=== PATIENT | female | born 1980 | race Two or more races ===

== ENCOUNTER 2018-06-14 06:52 | Inpatient (IN) | payer OTHER ==
--- NOTE | 2018-06-11 17:47 | PREOPHP ---
DATE OF ADMISSION: 06/14/2018 The patient is coming on 06/14/2018, for a surgical procedure. HISTORY OF PRESENT ILLNESS: This is a 38-year-old female, 0, para 0. This patient with a hi story of intractable pelvic pain, intractable multiple fibroid uterus and a history of heavy periods with anemia because she is changing pads every 1 to 2 hours with severe pelvic pain every cycle up to the last 3 to 4 days of her period. The patient has been treated with no alleviation of her symptom s either from her anemia bleeding or pelvic pain. The patient had been referred to me also because o f painful intercourse. She had been diagnosed with multiple fibroid uterus and she would like fibroi ds to be removed. The fibroids were up to 4 cm in diameter and they were multiple and she would be i nterested in having children and these fibroids she was told would interfere with her anitha nuation to full term . REVIEW OF SYSTEMS: Negative for heart disease. Negative for lung disease. Negative for GI, endocri ne disease, neurological or orthopedic disease. SOCIAL HISTORY: She does not drink or smoke. She has no history of drugs or alcohol. ALLERGIES: SHE IS NOT ALLERGIC TO ANY MEDICATION. FAMILY HISTORY: Hypertension, breast cancer, heart attacks and diabetes. PHYSICAL EXAMINATION: VITAL SIGNS: Stable. The patient is 5 feet, 2 inches. She is 119 pounds. HEAD AND NECK: Normal. CHEST: Clear. HEART: Normal sinus rhythm. LUNGS: Clear. BREASTS: Soft, nontender, no masses. ABDOMEN: Soft and uterus above the symphysis pubic. PELVIC: With normal external genitalia: Cervix is nulliparous. Uterus retroverted, flexed with mul tiple fibroids. The adnexa are nonpalpable. There is pain in both sides. RECTAL: Normal. EXTREMITIES: Normal. DIAGNOSES: The patient has diagnosis by ultrasound as well of: 1. Multiple uterine fibroids, submucosal fibroids. 2. Intractable pelvic pain, bleeding, anemia. 3. Previous spontaneous . The patient has been advised of the possible risks and possible complications of the procedure with h er alternatives and options. Written information was provided. She had no more questions and agreed to go ahead with the procedure that would be multiple myomectomy, possible NOY. She has been advise d that in case of an emergency situation during the surgery many times will be made to do a hysterect gaston instead of a myomectomy. She understands the possible risks and possible complications of the chowdhury rgery and she agreed to go ahead with the procedure with full understanding and no more questions. Dictated By: JAZMIN MORILLO/GILBERTO Conf#: [id number] DID#: [id number]
[~2018-06-14] VITALS: Ht 157.5 cm; Wt 52.6 kg
[2018-06-14] VITALS (26 sets, daily range): BP systolic 98–133; BP diastolic 47–78; PULSE 89–126; RESP 8–28; Ht 157.5 cm; Wt 52.6 kg
[~2018-06-14 06:52] MED LIST: CEFAZOLIN 2 GM/50 ML (PMX) 50 ML IVPB ONE; DEXTROSE 5%-LR 1,000 ML IV SCH
[2018-06-14] MEDS ORDERED: FER325 PO (07:35)
--- NOTE | 2018-06-14 08:45 | PREAC ---
Date/Time of Note Date/Time of Note DATE: 06/14/18 TIME: 08:44 Anesthesia Eval and Record Evaluation Time Pre-Procedure Interview DATE: 06/14/18 TIME: 08:44 Age 38 Sex female NPO: 8 hrs Preoperative diagnosis fibroids, anemia Planned procedure myomectomy Past Medical History Past Medical History: Includes Heme: Anemia Surgery & Anesthesia Issues No known issue Meds Anticoagulation: No Beta Verona within 24 hr: No Reason Beta Verona not given: Pt. not on B-Verona Reported Medications Ferrous Sulfate* (Ferrous Sulfate*) 325 Mg Tabec, 325 MG PO BID, TAB 06/14/18 Current Medications Dextrose/Lactated Ringer's 1,000 ml @ 125 mls/hr Q8H IV ; Start 06/14/18 at 06:00; Stop 06/14/18 at 23:00 Meds reviewed: Yes Allergies Coded Allergies: No Known Allergy (Unverified , 06/14/18) Allergies Reviewed: Yes Labs/Studies Labs Reviewed: Reviewed by anesthesiologist test: Negative Pre-procedure Exam Last vitals Vital Signs Date Temp Pulse Resp B/P (MAP) Pulse Ox O2 O2 Flow FiO2 Time Delivery Rate 06/14/18 98.9 89 18 118/78 98 Room Air 07:43 (91) Airway: Adequate mouth opening, Adequate thyromental dist Mallampati: Mallampati II Teeth: Normal Lung: Normal Heart: Normal ASA Physical Status ASA physical status: 1 Emergency: None Planned Anesthetic General/MAC: ETT Planned Pain Management Parenteral pain med, Local by surgeon Pre-operative Attestations Prior to commencing anesthesia and surgery, the patient was re-evaluated, there was verification of: *The patient's identity *The results of appropriate recent lab work and preoperative vital signs *The above evaluation not changing prior to induction *Anesthetic plan, risk benefits, alternative and complications discussed with patient/family; questions answered; patient/family understands, accepts and wishes to proceed. ENRRIQUE DA SILVA Jun 14, 2018 08:45
[2018-06-14] MEDS ORDERED: LIDOCAINE 2% (SDV) 5 ML INJ ONE (08:54)
[2018-06-14] MEDS ORDERED: ROCURONIUM 50 MG INJ ONE (08:54)
[2018-06-14] MEDS ORDERED: PROPOFOL 20 ML ONE (08:54)
[2018-06-14] MEDS ORDERED: MIDAZOLAM 1 MG/ML 2 ML INJ ONE (08:55)
[2018-06-14] MEDS ORDERED: FENTAnyl 50 MCG/ML VIAL ONE ×2 (08:55→11:08)
[2018-06-14] MEDS ORDERED: CEFAZOLIN 1 GM INJ ONE (08:55)
[2018-06-14] MEDS ORDERED: ALBUTEROL 0.083% (NEB) 2.5 MG/3 ML AMP HHN PRN (09:30)
[2018-06-14] MEDS ORDERED: HYDROmorphONE 1 MG/5 ML IV SYRINGE IV PRN ×3 (09:30)
[2018-06-14] MEDS ORDERED: OXYCODONE/ACETAMINOPHEN (5/325) TAB PO PRN ×2 (09:30)
[2018-06-14] MEDS ORDERED: ONDANSETRON 4 MG INJ IV PRN (09:30)
[2018-06-14] MEDS ORDERED: MEPERIDINE 25 MG INJ IV PRN (09:30)
[2018-06-14] MEDS ORDERED: morphine SULFATE/PF (10 MG/10 ML) INJ ONE (09:44)
[2018-06-14] MEDS ORDERED: ONDANSETRON 4 MG INJ ONE (10:01)
[2018-06-14] MEDS ORDERED: METOCLOPRAMIDE 10 MG INJ ONE (10:01)
[2018-06-14] MEDS ORDERED: KETOROLAC 30 MG INJ ONE (10:01)
--- NOTE | 2018-06-14 10:10 | HPN ---
Date/Time of Note Date/Time of Note DATE: 06/14/18 TIME: 10:10 Interval H&P Admission Note Pt. seen H&P reviewed: No system changes JAZMIN PHOENIX MD Jun 14, 2018 10:10
[2018-06-14] MEDS ORDERED: VASOPRESSIN 20 UNITS INJ ONE ×2 (10:22→10:34)
[2018-06-14] MEDS ORDERED: EPHEDrine 25 MG/5 ML SYG ONE (11:32)
[2018-06-14] MEDS ORDERED: ONDANSETRON INJ 6 MG in DEXTROSE 5% 50 ML IVPB PRN (12:00)
[2018-06-14] MEDS ORDERED: HYDROCODONE/APAP (5/325) TAB PO PRN ×2 (12:00)
[2018-06-14] MEDS ORDERED: DIPHENHYDRAMINE 50 MG CAP PO PRN (12:00)
--- NOTE | 2018-06-14 12:09 | SIPON ---
Date/Time of Note Date/Time of Note DATE: 06/14/18 TIME: 12:07 Operative Report Preoperative Diagnosis Multiple fibroid uterus intractable pelvic pain and bleeding Anemia Postoperative Diagnosis Same Operation/Procedure Performed Multiple myomectomy Surgeon see signature line virtual assistant for advertisers Rachel DREW Anesthesia: general Estimated blood loss: 0 - 10 ml's Transfusion Required none Specimen Fibroids Grafts/Implants none Complications none JAZMIN PHOENIX MD Jun 14, 2018 12:09
[2018-06-14] MEDS ORDERED: HYDROmorphONE 1 MG/5 ML IV SYRINGE IV ONE (12:13)
[2018-06-14] MEDS: LACTATED RINGER'S 1,000 ML IV SCH ×3 (14:09→22:46)
[2018-06-14] MEDS: KETOROLAC 30 MG INJ IV SCH ×3 (15:07→23:29)
[2018-06-14] MEDS: METOCLOPRAMIDE 10 MG TAB PO SCH ×3 (15:08→23:27)
[2018-06-14] MEDS: CEFAZOLIN 1 GM/50 ML (PMX) 50 ML IVPB SCH ×2 (15:32→22:46)
--- NOTE | 2018-06-14 16:49 | OPR ---
DATE OF OPERATION: 06/14/2018 PROCEDURE: Multiple myomectomy. PREOPERATIVE DIAGNOSES: 1. Multiple fibroid uterus. 2. Intractable pelvic pain and bleeding. 3. Anemia. POSTOPERATIVE DIAGNOSES: 1. Multiple fibroid uterus. 2. Intractable pelvic pain and bleeding. 3. Anemia. SURGEON: Jazmin Ortiz MD NEW [employer] MAKE READY WORKER: Rachel Renner PA-C ANESTHESIA: General and epidural. ANESTHESIOLOGIST: Nicole Petit MD DESCRIPTION OF PROCEDURE: The patient was given epidural and general anesthesia, placed in the supin e position. A Frey catheter was placed in the bladder. The abdomen was prepped and draped. A becker sverse incision was made suprapubically over the midline of about 10 cm in length. The abdominal cav ity was reached and the uterus was brought out through the incision. There were many fibroids and on e was in the anterior surface fundus which was mostly pedunculated and large of about 5 cm. There wa s an intramural fibroid. There was left-sided posterior wall of the uterus lateral to the left side that was maybe 7 cm. Another posterior fibroid that was in the lower part on the right side was abou t 4 cm. There was one anteriorly to the uterus near the cervix that was also about 1 cm and there we re 2 posterior subserosal fibroids that were about 1 cm each in the back of the uterus. The Pitressi n diluted with normal saline was injected around the old fibroids at the level of the subserosal area . An incision was made and the fibroids were grabbed with towel clips and brought out one by one. W e found 8 fibroids of different sizes that were removed from the uterus. All incisions were closed w ith 2-0 chromic interrupted sutures and this was done in 2 layers, first with the myometrium, second to the serosa of the uterus. The ovaries had small cysts that were fulgurated. Both tubes had an un derlining of possible embryonic cyst channels that were under the mesosalpinx and both tubes. Both t ubes and ovaries were normal otherwise. The areas of surgery were covered with Interceed and also braxton th ovaries were covered with Interceed. The abdominal cavity was cleaned out and closed after sponge counts and instrument counts were correct. A 2-0 Vicryl suture was used to the peritoneum. A 0 PDS looped suture was used for the fascia, 2-0 Vicryl for the subcutaneous tissue, 3-0 Monocryl subcutic ular to the skin. The patient tolerated the procedure well and left the OR awake and stable. Sponge counts and instruments counts were correct. Intravenous antibiotics were given for prophylaxis. Bl ood loss was minimal and the urine was clear at the end of the procedure. Dictated By: JAZMIN MORILLO/GILBERTO Conf#: [id number] DID#: [id number]
[2018-06-15 01:38] VITALS: BP 93/56; PULSE 77; RESP 16
[2018-06-15] MEDS: METOCLOPRAMIDE 10 MG TAB PO SCH ×4 (06:00→22:19)
[2018-06-15] MEDS: CEFAZOLIN 1 GM/50 ML (PMX) 50 ML IVPB SCH ×3 (06:01→21:09)
[2018-06-15] MEDS: KETOROLAC 30 MG INJ IV SCH ×3 (06:03→17:34)
[2018-06-15 07:49] VITALS: BP 105/58; PULSE 88; RESP 16
--- NOTE | 2018-06-15 12:08 | PN ---
Date/Time of Note Date/Time of Note DATE: 06/15/18 TIME: 12:07 Assessment/Plan Lines/Catheters IV Catheter Type (from Nrsg): Saline Lock Frey in Place (from Nrsg): Yes Subjective 24 Hr Interval Summary Day 1 post myomectomy Patient very gassy afebrile not in pain Encouraged ambulation Frey to be removed Patient has been explained about the findings and surgery and they were very grateful Anemic We will give her IV iron Constitutional: no complaints Feeding: advancing diet Pain Control: mild Detailed Summary Eyes: no complaints ENT: no complaints Respiratory: no complaints Cardiovascular: no complaints Gastrointestinal: no complaints Genitourinary: no complaints Musculoskeletal: no complaints Skin: no complaints Neurologic: no complaints Endocrine: no complaints Lymphatic: no complaints Psychological: no complaints, nl mood/affect Immunologic: no complaints Exam/Review of Systems Vital Signs Vitals Vital Signs Date Temp Pulse Resp B/P (MAP) Pulse Ox O2 O2 Flow FiO2 Time Delivery Rate 06/15/18 98.5 88 16 105/58 99 07:49 (74) 06/14/18 Nasal 2.0 15:16 Cannula Intake and Output 06/14/18 06/14/18 06/15/18 1515:00 23:00 07:00 IntakeIntake Total 1800 ml 1320 ml 850 ml OutputOutput Total 340 ml 800 ml 1150 ml BalanceBalance 1460 ml 520 ml -300 ml Exam Constitutional: alert, oriented, well developed Psych: no complaints, nl mood/affect Head: normocephalic, atraumatic Eyes: nl conjunctiva, EOMI, nl lids, nl sclera ENMT: nl external ears & nose, nl lips & teeth, nl nasal mucosa & septum, mucosa pink and moist Neck: supple, non-tender Respiratory: clear to auscultation, normal air movement Cardiovascular: regular rate and rhythm, nl pulses Gastrointestinal: soft, nl liver, spleen, non-tender Musculoskeletal: nl extremities to inspection, nl gait and stance Extremities: normal pulses Neurological: SENIOR STEREO COMPILER TEAM LEAD II-XII intact, nl mental status, nl speech, nl strength Skin: nl turgor, rash or lesions Lymph: nl lymph nodes Results Result Diagram: 06/15/189 06/15/18 0429 JAZMIN PHOENIX MD Jun 15, 2018 12:08
[2018-06-15] MEDS ORDERED: BISACODYL (EC) 5 MG TAB PO ONE (12:30)
[2018-06-15] MEDS ORDERED: SOD FERRIC GLUC COMPLX 125 MG in SOD CHLORIDE 0.9% 100 ML IVPB ONE (12:30)
--- NOTE | 2018-06-15 12:44 | PAC ---
Date/Time of Note Date/Time of Note DATE: 06/15/18 TIME: 12:44 Post-Anesthesia Notes Post-Anesthesia Note Last documented vital signs Vital Signs Date Temp Pulse Resp B/P (MAP) Pulse Ox O2 O2 Flow FiO2 Time Delivery Rate 06/15/18 98.5 88 16 105/58 99 07:49 (74) 06/14/18 Nasal 2.0 15:16 Cannula Activity: WNL Respiratory function: WNL Cardiovascular function: WNL Mental status: Baseline Pain reasonably controlled: Yes Hydration appropriate: Yes Nausea/Vomiting absent: No DENZEL DAUGHERTY MD Jun 15, 2018 12:44
--- NOTE | 2018-06-15 12:46 | OPPN ---
Date/Time of Note Date/Time of Note DATE: 06/15/18 TIME: 12:44 Anesthesia Follow up Anesthesia Follow up Last documented vital signs Vital Signs Date Temp Pulse Resp B/P (MAP) Pulse Ox O2 O2 Flow FiO2 Time Delivery Rate 06/15/18 98.5 88 16 105/58 99 07:49 (74) 06/14/18 Nasal 2.0 15:16 Cannula Respiratory function: WNL Cardiovascular function: WNL Comments A 38 year female s/p GA spinal duramorph for post op pain POD #1 is doing well. No pain, itching, headache,neural deficit. N/V is controlled. DENZEL DAUGHERTY MD Jun 15, 2018 12:46
[2018-06-15 14:06] VITALS: BP 125/70; PULSE 96; RESP 18
[2018-06-15 19:41] VITALS: BP 116/67; PULSE 100; RESP 18
[2018-06-15] MEDS: ZOLPIDEM 5 MG TAB PO PRN (21:25)
[2018-06-16] MEDS: IBUPROFEN 800 MG TAB PO SCH ×4 (00:25→20:48)
[2018-06-16 02:01] VITALS: BP 109/63; PULSE 94; RESP 17
[2018-06-16] MEDS: CEFAZOLIN 1 GM/50 ML (PMX) 50 ML IVPB SCH (05:32)
[2018-06-16] MEDS: METOCLOPRAMIDE 10 MG TAB PO SCH ×3 (05:33→17:43)
[2018-06-16 07:47] VITALS: BP 100/56; PULSE 92; RESP 17
--- NOTE | 2018-06-16 07:53 | PN ---
Date/Time of Note Date/Time of Note DATE: 06/16/18 TIME: 07:51 Assessment/Plan Lines/Catheters IV Catheter Type (from Nrsg): Saline Lock Frey in Place (from Nrsg): No Subjective 24 Hr Interval Summary Day 2 after explored lap and myomectomy. Afebrile feels good Has been ambulatory during the day Incision looks dry CBC with anemia but as symptomatic Patient is getting her IV iron Pain is controlled Tolerating diet and passing gases Possible home in the morning Constitutional: no complaints Feeding: advancing diet Pain Control: mild Detailed Summary Eyes: no complaints ENT: no complaints Respiratory: no complaints Cardiovascular: no complaints Gastrointestinal: no complaints Genitourinary: no complaints Musculoskeletal: no complaints Skin: no complaints Neurologic: no complaints Endocrine: no complaints Lymphatic: no complaints Psychological: no complaints, nl mood/affect Immunologic: no complaints Exam/Review of Systems Vital Signs Vitals Vital Signs Date Temp Pulse Resp B/P (MAP) Pulse Ox O2 O2 Flow FiO2 Time Delivery Rate 06/16/18 98.0 92 17 100/56 98 07:47 (71) 06/14/18 Nasal 2.0 15:16 Cannula Intake and Output 06/15/18 06/15/18 06/16/18 1515:00 23:00 07:00 IntakeIntake Total 950 ml 1100 ml 50 ml BalanceBalance 950 ml 1100 ml 50 ml Exam Constitutional: alert, oriented, well developed Psych: no complaints, nl mood/affect Head: normocephalic, atraumatic Eyes: nl conjunctiva, EOMI, nl lids, nl sclera ENMT: nl external ears & nose, nl lips & teeth, nl nasal mucosa & septum, mucosa pink and moist Neck: supple, non-tender Respiratory: clear to auscultation, normal air movement Cardiovascular: regular rate and rhythm, nl pulses Gastrointestinal: soft, nl liver, spleen, non-tender Musculoskeletal: nl extremities to inspection, nl gait and stance Extremities: normal pulses Neurological: DEFENSE ATTORNEY II-XII intact, nl mental status, nl speech, nl strength Skin: nl turgor, rash or lesions Lymph: nl lymph nodes Results Result Diagram: 06/16/18 0507 06/15/18 0429 JAZMIN PHOENIX MD Jun 16, 2018 07:53
[2018-06-16] MEDS ORDERED: BISACODYL (EC) 5 MG TAB PO ONE (09:00)
[2018-06-16 14:56] VITALS: BP 118/58; PULSE 16; RESP 18
[2018-06-16 19:53] VITALS: BP 114/78; PULSE 89; RESP 16
[2018-06-16] MEDS: ZOLPIDEM 5 MG TAB PO PRN (21:27)
[2018-06-17] MEDS: METOCLOPRAMIDE 10 MG TAB PO SCH ×2 (01:06→05:57)
[2018-06-17 01:19] VITALS: BP 115/66; PULSE 74; RESP 16
[2018-06-17 08:02] VITALS: BP 117/75; PULSE 86; RESP 19
[2018-06-17] MEDS: IBUPROFEN 800 MG TAB PO SCH (08:27)
--- NOTE | 2018-06-17 10:03 | PD.PPDC ---
RUBBLE PLACER Discharge Instruction Condition [id number] Patient Condition: [id number] Good Diet [id number] Diet: [id number] Resume Regular Diet Activity/Restrictions [id number] Activity: [id number] Normal Activity May Shower [id number] Restrictions: Oimhz7u No Exercising No Lifting No Driving No Sexual Activity Nothing in the Vagina No [place] No Tampons, douche Wound/Drain Care Instructions [id number] Wound/Drain Care Instructions: [id number] Wash with soap and water Keep clean and dry Follow-up Follow-up with Physician: 1, Week/Weeks Return to clinic for [id number] BAND SPLICER Instructions: [id number] Fever greater than 101 Chills Worsening abdominal pain Excessive Vaginal Bleeding More than 2 pads per hour Unable to tolerate diet [id number] Surgical Instructions: [id number] Incisional Drainage Incisional Redness JAZMIN PHOENIX MD Jun 17, 2018 10:03
--- NOTE | 2018-06-17 10:09 | DS ---
Date/Time of Note Date/Time of Note DATE: 06/17/18 TIME: 10:05 Discharge Summary Admission/Discharge Info Admit Date/Time Jun 14, 2018 at 06:52 Discharge Date/Time June 17, 2018 Discharge Diagnosis Multiple fibroid uterus Intractable pelvic pain and bleeding Anemia Patient Condition: Good Procedures Exploratory laparotomy multiple myomectomy Hx of Present Illness 38 years old female with fibroids in the uterus and intractable menometrorrhagia and pain. Patient is anemic and trying to conceive. 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 Patient did very well after surgery and she became active afebrile tolerating diet with an incision that is healing very well with no active bleeding and with bowel movement. She is being discharged on her third postoperative day with instructions of Tylenol 3 and ibuprofen as needed. She was also given Xanax due to anxiety and difficulties sleeping. The patient is stable to go home She was given 1 dose of IV iron due to chronic anemia She did not bleed much since surgery she is used to her anemia so she is not symptomatic but she is weak. She is to continue with high protein diet iron and vitamins and to see me in the office at any time or in 1 week Home Meds Reported Medications Ferrous Sulfate* (Ferrous Sulfate*) 325 Mg Tabec, 325 MG PO BID, TAB 06/14/18 Primary Care Provider Not On Staff Doctor Time spent on discharge: < 30 minutes JAZMIN PHOENIX MD Jun 17, 2018 10:09
== END 2018-06-17 11:55 | disposition home or self-care (01) | DRG 743 ==
LOC: REC 06:52 → 2NE 13:40
PROVIDERS: ADMIT Obstetrics & Gynecology; ATTEND Obstetrics & Gynecology
PROC: 0UB90ZZ Excision of Uterus, Open Approach (ICD-10-PCS; principal; 2018-06-14 09:00)
DX: D25.1 Intramural leiomyoma of uterus (principal); D25.2 Subserosal leiomyoma of uterus; D64.9 Anemia, unspecified
CPT/HCPCS: 80051; 82565; 84520; 85025; 87086; 88305; 93005; J0690; J1170; J1885; J2250; J2274; J2405; J2765; J2916; J3010; J7120; J7121